=== PATIENT | female | born 1960 | race Two or more races ===

== ENCOUNTER 2024-02-13 22:40 | Emergency (ER) | payer OTHER ==
[~2024-02-13] VITALS: Ht 157.5 cm; Wt 76.0 kg
[2024-02-13] MEDS ORDERED: NOREPINEPHRINE 8 MG/0.9 % NACL 250 ML IV ONE (22:45)
[2024-02-13] MEDS ORDERED: PHENYLEPHRINE HCL IN 0.9% NACL 400 MCG/10 ML SYRINGE IVP ONE (22:45)
[2024-02-13 23:04] VITALS: TEMP 101
[2024-02-13] MEDS ORDERED: KETAMINE HCL 50 MG/ML 10 ML VIAL ONE (23:04)
[2024-02-13] MEDS ORDERED: NOREPINEPHRINE 8 MG/0.9 % NACL 250 ML IV PRN (23:30)
[2024-02-13 23:36] VITALS: PULSE 103; RESP 16; O2SAT 99
[2024-02-13 23:37] VITALS: PULSE 103; RESP 16; O2SAT 99
[2024-02-13] MEDS ORDERED: 0.9% SODIUM CHLORIDE 10 ML SYRINGE IVP PRN (23:45)
[2024-02-13 23:50] LABS: MEAN CORPUSCULAR HEMOGLOBIN 23.8 pg (26.0-34.0); MEAN CORPUSCULAR HGB CONC 30.3 G/dL (31.0-37.0); MEAN CORPUSCULAR VOLUME 79 fL (80-100); PLATELET COUNT (AUTO) 48 K/uL (150-450); RED BLOOD CELL COUNT(AUTO) 2.42 MIL/uL (4.00-5.20); RED CELL DISTRIBUTION WIDTH 27.1 % (11.5-14.5)
[2024-02-13 23:54] LABS: APPEARANCE,URINE HAZY (CLEAR); BILIRUBIN,URINE NEGATIVE (NEGATIVE); COLOR,URINE YELLOW (YELLOW); GLUCOSE, URINE (UA) NEGATIVE (NEGATIVE); KETONES,URINE NEGATIVE (NEGATIVE); LEUKOCYTE ESTERASE ,URINE SMALL (NEGATIVE); NITRATE,URINE NEGATIVE (NEGATIVE); OCCULT BLOOD,URINE SMALL (NEGATIVE); PH,URINE 5.5 (5.0-8.0); PROTEIN,URINE TRACE mg/dL (NEGATIVE); SPECIFIC GRAVITIY, URINE 1.008 (1.003-1.030); UROBILINOGEN,URINE <=1.0 mg/dL (<=1.0)
[2024-02-14 00:02] LABS: ALANINE AMINOTRANSFERASE 159 U/L (12-78); ALKALINE PHOSPHATASE 250 U/L (46-116); ANION GAP 15 mmol/L (8-16); ASPARTATE AMINOTRANSFERASE 144 U/L (15-37); BILIRUBIN,TOTAL 3.4 mg/dL (0.1-1.0); CALCIUM, TOTAL 7.5 mg/dL (8.8-10.5); CARBON DIOXIDE 15 mmol/L (22-29); CHLORIDE 103 mmol/L (98-107); CREATININE 1.51 mg/dL (0.60-1.30); GLOMERULAR FILTR. RATE CALC 35 mL/min (>60); SODIUM SERUM 133 mmol/L (136-145); TOTAL PROTEIN, SERUM 3.4 g/dL (6.4-8.2); UREA NITROGEN, BLOOD 50 mg/dL (7-18)
[2024-02-14 00:05] LABS: GLUCOSE,RANDOM 13 mg/dL (70-110)
[2024-02-14 00:06] LABS: HEMOGLOBIN 5.8 g/dL (12.0-16.0)
[2024-02-14 00:11] LABS: TROPONIN I-HIGH SENSITIVITY 52 ng/L (<51)
[2024-02-14 00:19] LABS: AMORPHOUS SEDIMENT,UR Few /LPF (None Seen); BACTERIA,URINE Few /HPF (None Seen); FINE GRANULAR CASTS,URINE 0-2 /LPF (None Seen); RBC,URINE 0-2 /HPF (0-2); SQUAMOUS EPITHELIAL CELL,UR Few /LPF (None Seen)
[2024-02-14] MEDS: EPINEPHrine 5 MG in DEXTROSE 5%-WATER 245 ML IV PRN (00:20)
[2024-02-14] MEDS ORDERED: DEXTROSE 50%-WATER 25 GM/50 ML SYRINGE IVP ONE (00:21)
[2024-02-14 00:28] LABS: ABG BASE EXCESS -16.5 mmol/L (-2.0-3.0); ABG CARBOXYHEMOGLOBIN 0.6 % (0.5-1.5); ABG HCO3 12.3 mmol/L (21.0-28.0); ABG METHEMOGLOBIN 0.5 % (0.0-1.5); ABG OXYGEN CONTENT 9.9 mL/dL (15.0-23.0); ABG OXYGEN SATURATION 98.1 % (94.0-98.0); ABG PCO2 42 mmHg (32.0-45.0); SOURCE, BLOOD GAS ARTERIAL; TEMPERATURE, FAHRENHEIT, BG 98.3 FAHREN (96.0-98.6)
[2024-02-14 00:29] LABS: ABG PH 7.109 (7.350-7.450); ALLEN TEST, BLOOD GAS Positive; PO2, ARTERIAL BG 153.8 mmHg (83.0-108.0); SITE, BLOOD GAS RT RADIAL
[2024-02-14 00:29] LABS: B-TYPE NATRIURETIC PEPTIDE 65 pg/mL (0-100)
[2024-02-14 00:30] LABS: O2 DEVICE,BLOOD GAS VENTILATOR (ROOM AIR); PEEP,BG 5 cm H2O; VT, ABG 400 ml
[2024-02-14] MEDS: CEFEPIME HCL 1 GM in DEXTROSE 5%-WATER 50 ML IV ONE (00:35)
[2024-02-14] MEDS: SODIUM CHLORIDE 0.9% 2,300 ML IV ONE (00:41)
[2024-02-14 00:51] LABS: GLUCOMETER DEV NAME(LOC) ERT.5; GLUCOSE,POINT OF CARE 32 MG/DL (70-110)
[2024-02-14 01:00] LABS: RBC MORPHOLOGY COMMENT ABNORMAL RBC MORPH
[2024-02-14 01:01] LABS: WHITE BLOOD COUNT (AUTO) 2.5 K/uL (4.5-11.0)
[2024-02-14] MEDS: DEXTROSE 5%-0.9% SODIUM CHL 1,000 ML IV ONE (01:04)
[2024-02-14] MEDS: VANCOMYCIN 1.5 GM/WATER(PEG) 300 ML IV ONE (01:44)
[2024-02-14 01:48] LABS: BAND NEUTROPHILS % (MANUAL) 7 % (0-5); BASOPHILS % (MANUAL) 2 % (0-2); EOSINOPHILS % (MANUAL) 5 % (1-6); LYMPHOCYTES % (MANUAL) 7 % (22-44); METAMYELOCYTES % 4 % (0-0); MONOCYTES % (MANUAL) 5 % (2-9); MYELOCYTES % 1 % (0-0); SEGMENTED NEUTROPHILS % 69 % (40-70); TOTAL CELLS COUNTED 100
[2024-02-14 01:49] LABS: INR 2.1 (0.9-1.1); PROTHROMBIN TIME 20.9 SEC (9.4-11.6)
[2024-02-14 02:46] VITALS: PULSE 111; RESP 21; O2SAT 94
[2024-02-14] MEDS: HYDROCORTISONE SOD SUCC 100 MG/2 ML VIAL IVP ONE (02:56)
[2024-02-14 03:30] VITALS: BP 108/39; PULSE 108; RESP 21; O2SAT 95
[2024-02-14] MEDS: GLYCOPYRROLATE 0.2 MG/ML VIAL IVP ONE (04:24)
[2024-02-14] MEDS: MIDAZOLAM HCL 2 MG/2 ML VIAL IVP ONE (05:01)
[2024-02-14] MEDS: MORPHINE SULFATE 2 MG/ML SYRINGE IVP ONE (05:02)
[2024-02-14] MEDS: KETAMINE HCL 500 MG in DEXTROSE 5%-WATER 490 ML IV PRN (05:14)
== END 2024-02-14 09:08 ==
LOC: EMS 22:40 → EDH 02-14 02:28 → UNDOADMIN 02-14 02:28 → EMS 02-14 09:08
DX: R40.4 Transient alteration of awareness (principal); R65.21 Severe sepsis with septic shock; D64.9 Anemia, unspecified; R73.9 Hyperglycemia, unspecified; I11.9 Hypertensive heart disease without heart failure
CPT/HCPCS: 31500; 36600; 71045; 80053; 81001; 82805; 82962; 83605; 83880; 84145; 84484; 85025; 85610; 85730; 86850; 86870; 86880; 86900; 86901; 86902; 86905; 86906; 86971; 86999; 87040; 87077; 87205; 93005; 94002; 96361; 96365; 96367; 96375; 99285; 99291; 99292; J0171; J0692; J1720; J2250; J2270; J3490; J7042; J7060; 36415-L1; 36415-TC